=== PATIENT | female | born 1960 ===

== ENCOUNTER 2016-09-24 11:18 | Outpatient (CLI) | payer BC ==
--- NOTE | 2016-09-24 14:03 | Ultrasound Report ---
RIGHT UPPER QUADRANT ABDOMINAL ULTRASOUND: 09/24/16 11:18:00 CLINICAL: Elevated liver enzymes. FINDINGS: High-resolution ultrasound demonstrated a normal size liver with normal contour and echogenicity. No liver mass.. Normal hepatic vasculature and inferior vena cava. Normal gallbladder and bile ducts. The gall bladder wall measures 1.2 mm in thickness. The common bile duct measures 4.0 mm diameter. Normal head and body of the pancreas. The pancreatic tail is obscured by bowel gas. Normal upper abdominal aorta. The right kidney is normal and measures cm. No ascites or mass. IMPRESSION: Normal study.
== END 2016-09-24 11:19 | disposition home or self-care (01) ==
LOC: SPVWC 11:18
PROVIDERS: ATTEND Internal Medicine
DX: R94.5 Abnormal results of liver function studies (principal)
CPT/HCPCS: 76705